=== PATIENT | female | born 1985 | race Caucasian/White ===

== ENCOUNTER 2017-03-04 05:51 | Inpatient (IN) ==
[2017-03-04] MEDS ORDERED: ONDANSETRON 4 MG/2 ML VIAL IV PRN ×2 (06:13→14:44)
[2017-03-04] MEDS ORDERED: OXYTOCIN/LR 20 UNIT/1,000 ML BAG IV SCH (06:30)
[2017-03-04 06:37] LABS: Basophils % 0.3 % (0.0-0.8); Eosinophils # 0.2 10*3/uL (0.0-0.87); Eosinophils % 1.5 % (0.00-10.9); Hematocrit 33.8 VOL% (35.7-47.0); Hemoglobin 12.2 GM/DL (12.0-16.0); Immature Granulocytes % 1.1 %; Immature Granulocytes Absolute 0.11 #; Lymphocytes % 20.3 % (21.3-54.2); Mean Corpuscular HGB Conc 36.1 GM/DL (32-36); Mean Corpuscular Hemoglobin 31 PG (27-34); Mean Corpuscular Volume 86.7 FL (87-102); Monocytes # 0.7 10*3/uL (0.11-0.8); Monocytes % 6.7 % (1.7-12.7); Neutrophils # 6.9 10*3/uL (1.4-7.4); Neutrophils % 70.1 % (38.7-73.9); Platelet Count 163 T/CUMM (130-400); White Blood Count 9.8 T/CUMM (4-12)
[2017-03-04] MEDS: LACTATED RINGERS 1,000 ML IV SCH ×2 (06:53→09:58)
[2017-03-04] MEDS ORDERED: LACTATED RINGERS 1,000 ML IV ONE (07:56)
[2017-03-04] MEDS ORDERED: LACTATED RINGERS 500 ML IV ONE (07:56)
[2017-03-04] MEDS ORDERED: CITRIC ACID/SODIUM CITRATE 30 ML UDCUP PO ONE (07:56)
[2017-03-04] MEDS ORDERED: FAMOTIDINE 20 MG/2 ML VIAL IV ONE (07:56)
[2017-03-04] MEDS ORDERED: ePHEDrine 50 MG/ML AMP IV PRN (07:56)
[2017-03-04] MEDS ORDERED: hydrOXYzine HCL 25 MG/1 ML VIAL IM PRN (07:57)
[2017-03-04] MEDS ORDERED: diphenhydrAMINE 50 MG/1 ML VIAL IV PRN ×2 (07:57)
[2017-03-04] MEDS ORDERED: PROMETHAZINE 25 MG/1 ML VIAL IM ONE (07:57)
[2017-03-04] MEDS ORDERED: fentaNYL 2 MCG/ROPIV 0.2% EPID 150 ML EPIDURAL SCH (08:00)
[2017-03-04 11:25] LABS: Apearance,Urine CLEAR (Clear); Bilirubin,Urine Negative (Negative); Blood, Urine Negative (Negative); Glucose,Urine (UA) Negative (Negative); Ketones,Urine 5 mg/dL (Negative); Nitrite,Urine Negative (Negative); Protein,Urine Negative; RBC,Urine 1 /HPF (0-4); Urine Color Straw (Yellow); Urine Specific Gravity 1.003 (1.001-1.035); Urine Urobilinogen < 2.0 EU/DL (0.2-1.0); WBC,Urine <1 /HPF (0-6)
[2017-03-04] MEDS ORDERED: LIDOCAINE 1% 50 ML VIAL ONE (14:16)
[2017-03-04] MEDS ORDERED: miSOPROStol 200 MCG TABLET ONE (14:17)
[2017-03-04] MEDS ORDERED: METHYLERGONOVINE 0.2 MG/1 ML AMP ONE (14:17)
[2017-03-04] MEDS ORDERED: OXYTOCIN/LR 20 UNIT/1,000 ML BAG IV ONE (14:44)
[2017-03-04] MEDS ORDERED: BISACODYL 10 MG SUPP RECTAL PRN (14:44)
[2017-03-04] MEDS ORDERED: WITCH HAZEL PADS 100/JAR TOP PRN (14:44)
[2017-03-04] MEDS ORDERED: oxyCODONE/ACETAMINOPHEN 5-325 MG TABLET PO PRN (14:44)
[2017-03-04] MEDS ORDERED: LANOLIN 50% CREAM 0.3 OZ TUBE TOP PRN (14:44)
[2017-03-04] MEDS ORDERED: ACETAMINOPHEN 325 MG TABLET PO PRN (14:44)
[2017-03-04] MEDS ORDERED: HYDROCORTISONE 2.5% RECTAL CREAM 30 GM TUBE TOP PRN (14:44)
[2017-03-04] MEDS ORDERED: BENZOCAINE 20%/MENTHOL 0.5% SPRAY 56 GM CAN TOP PRN (14:44)
[2017-03-04] MEDS ORDERED: RHO(D) IMMUNE GLOBULIN 300 MCG SYRINGE IM ONE (15:00)
[2017-03-04] MEDS ORDERED: MEASLES/MUMPS/RUBELLA VACCINE 0.5 ML VIAL SUBCUT ONE (15:00)
[2017-03-04] MEDS ORDERED: DIPH/TET/ACEL PERT BOOSTER VACCINE 0.5 ML VIAL IM ONE (15:00)
[2017-03-04] MEDS: oxyCODONE/ACETAMINOPHEN 5-325 MG TABLET PO PRN (20:16)
[2017-03-04] MEDS: DOCUSATE SODIUM 100 MG CAPSULE PO SCH (20:16)
[2017-03-05] MEDS: IBUPROFEN 800 MG TABLET PO PRN ×3 (04:09→20:22)
[2017-03-05] MEDS: oxyCODONE/ACETAMINOPHEN 5-325 MG TABLET PO PRN ×3 (05:13→20:22)
[2017-03-05 06:40] LABS: Basophils % 0.2 % (0.0-0.8); Eosinophils # 0.2 10*3/uL (0.0-0.87); Eosinophils % 1.6 % (0.00-10.9); Hematocrit 30.8 VOL% (35.7-47.0); Hemoglobin 11.2 GM/DL (12.0-16.0); Immature Granulocytes % 0.9 %; Immature Granulocytes Absolute 0.11 #; Lymphocytes # 1.9 10*3/uL (1.4-4.0); Lymphocytes % 14.8 % (21.3-54.2); Mean Corpuscular HGB Conc 36.4 GM/DL (32-36); Mean Corpuscular Hemoglobin 32 PG (27-34); Mean Corpuscular Volume 86.8 FL (87-102); Monocytes # 0.7 10*3/uL (0.11-0.8); Monocytes % 5.1 % (1.7-12.7); Neutrophils # 9.8 10*3/uL (1.4-7.4); Neutrophils % 77.4 % (38.7-73.9); Platelet Count 138 T/CUMM (130-400); Red Blood Count 3.55 MC/CUMM (3.8-5.5); Red Cell Distribution Width 13.2 % (9.3-17.3); White Blood Count 12.7 T/CUMM (4-12)
[2017-03-05] MEDS: FLUoxetine 10 MG CAPSULE PO SCH (10:02)
[2017-03-05] MEDS: DOCUSATE SODIUM 100 MG CAPSULE PO SCH ×2 (10:02→20:21)
[2017-03-05] MEDS ORDERED: RHO(D) IMMUNE GLOBULIN 300 MCG SYRINGE IM ONE (17:43)
[2017-03-06] MEDS: IBUPROFEN 800 MG TABLET PO PRN (06:36)
[2017-03-06] MEDS: FLUoxetine 10 MG CAPSULE PO SCH (08:44)
[2017-03-06] MEDS: DOCUSATE SODIUM 100 MG CAPSULE PO SCH (08:45)
[2017-03-06 10:22] VITALS: BP 109/64
== END 2017-03-06 11:15 | disposition home or self-care (01) | DRG 775 ==
LOC: N.LDOUT 05:51 → N.LD 05:53 → N.OB 20:10
PROVIDERS: ADMIT Obstetrics & Gynecology; ATTEND Obstetrics & Gynecology